=== PATIENT | female | born 1975 | race American Indian/Alaskan Native ===

== ENCOUNTER 2019-05-18 13:28 | Outpatient (CLI) | payer OTHER | END 2019-05-18 14:49 | disposition home or self-care (01) | LOC: NST 13:28 | DX: Z34.83 Encounter for supervision of other normal pregnancy, third trimester (principal) ==

== ENCOUNTER 2019-06-02 10:17 | Outpatient (CLI) | payer OTHER | END 2019-06-02 11:38 | disposition home or self-care (01) | LOC: NST 10:17 | DX: Z34.83 Encounter for supervision of other normal pregnancy, third trimester (principal) ==

== ENCOUNTER 2019-06-15 09:45 | Outpatient (CLI) | payer OTHER | END 2019-06-15 10:22 | disposition home or self-care (01) | LOC: NST 09:45 | DX: Z34.83 Encounter for supervision of other normal pregnancy, third trimester (principal) ==

== ENCOUNTER 2019-07-13 13:03 | Inpatient (IN) | payer OTHER ==
[~2019-07-13] VITALS: Ht 152.4 cm; Wt 2.3 kg
[2019-07-13] MEDS ORDERED: IRON18 MG PO (14:35)
[2019-07-13] MEDS ORDERED: PRENATAL TABLE1 EAC1 PO ×2 (14:36→15:50)
[2019-07-13] MEDS ORDERED: IRON236 MG PO (15:50)
[2019-07-13] MEDS ORDERED: NIFE60TA3 PO (15:51)
[2019-07-13] MEDS ORDERED: FOLIC ACID0.8 M1 PO (15:51)
[2019-07-13] MEDS ORDERED: CEFDINIR300 MG PO (15:53)
== END 2019-07-16 14:23 | disposition home or self-care (01) | DRG 788 ==
LOC: LDR 13:03 → SURG-SUITE 19:07
PROVIDERS: ADMIT Obstetrics & Gynecology
PROC: 4A1HXFZ Monitoring of Products of Conception, Cardiac Rhythm, External Approach (ICD-10-PCS; 2019-07-13)
PROC: 3E033VJ Introduction of Other Hormone into Peripheral Vein, Percutaneous Approach (ICD-10-PCS; 2019-07-13)
PROC: 10D00Z1 Extraction of Products of Conception, Low, Open Approach (ICD-10-PCS; principal; 2019-07-13 16:00)
DX: O64.1XX1 Obstructed labor due to breech presentation, fetus 1 (principal); O30.033 Twin pregnancy, monochorionic/diamniotic, third trimester; Z3A.35 35 weeks gestation of pregnancy; Z37.2 Twins, both liveborn

== ENCOUNTER 2020-01-06 11:11 | Outpatient (CLI) | payer OTHER ==
[~2020-01-06 11:11] MED LIST: CEFDINIR300 MG PO; FOLIC ACID0.8 M1 PO; IRON18 MG PO; IRON236 MG PO; NIFE60TA3 PO; PRENATAL TABLE1 EAC1 PO
== END 2020-01-06 11:27 | disposition home or self-care (01) ==
LOC: TOM 11:11
PROVIDERS: ATTEND Obstetrics & Gynecology Maternal & Fetal Medicine
DX: R10.32 Left lower quadrant pain (principal); K57.92 Diverticulitis of intestine, part unspecified, without perforation or abscess without bleeding